=== PATIENT | female | born 1995 | race Caucasian/White ===

== ENCOUNTER → 2018-02-28 | Outpatient (CLI) | payer BC ==
[2018-02-28 10:25] LABS: HCT 35.2 % (34.0-46.0); HGB 12.1 gm/dL (11.4-16.0); MCH 29.4 pg (25.0-35.0); MCHC 34.3 g/dL (31.0-37.0); MCV 85.6 fL (80.0-100.0); Mean Platelet Volume 7.4; Platelet Count 216 k/uL (150-450); RBC 4.11 m/uL (3.80-5.40); RDW 12.5 % (11.5-15.5); WBC 6.7 k/uL (4.0-11.0)
[2018-03-02 11:42] LABS: HIV 1 AB Non-Reactive (Non-Reactive); HIV AB P24 Non-Reactive (Non-Reactive); HIV P24 AG Non-Reactive (Non-Reactive)
== END | disposition home or self-care (01) ==
LOC: LABWHC1 10:04
PROVIDERS: ATTEND Obstetrics & Gynecology
DX: Z34.81 Encounter for supervision of other normal pregnancy, first trimester (principal); Z3A.12 12 weeks gestation of pregnancy
CPT/HCPCS: 36415; 85027; 86762; 86780; 86850; 86900; 86901; 87340; 87390

== ENCOUNTER 2018-09-02 06:00 | Inpatient (IN) | payer OTHER, BC ==
[2018-09-02] MEDS ORDERED: LIDOCAINE 0.5% (PF) 5 MG/ML (50 ML SDV) SQ PRN (06:14)
[2018-09-02] MEDS ORDERED: TERBUTALINE 1 MG/ML VIAL SQ PRN (06:14)
[2018-09-02] MEDS ORDERED: OXYTOCIN 10 UNIT/ML 1 ML VIAL IM PRN (06:14)
[2018-09-02] MEDS ORDERED: CARBOPROST TROMETHAMINE 250 MCG/ML 1 ML AMP IM PRN (06:14)
[2018-09-02] MEDS ORDERED: METHYLERGONOVINE 0.2 MG/ML 1 ML AMP IM PRN (06:14)
[2018-09-02] MEDS ORDERED: OXYTOCIN 30 UNITS/500 ML NS 30 UNIT in SALINE 1 500ML.BAG IV SCH (06:15)
[2018-09-02 06:19] VITALS: BMI 26.7
[2018-09-02] MEDS: LACTATED RINGERS 1,000 ML IV SCH ×2 (06:32→12:29)
[2018-09-02 06:54] LABS: Basophils % (A) 0 %; Eosinophils % (A) 0 %; HCT 37.5 % (34.0-46.0); HGB 12.2 gm/dL (11.4-16.0); Hypochromasia Slight; Lymphocytes # (A) 1.7 k/uL (1.0-4.8); Lymphocytes % (A) 16 %; MCH 27.8 pg (25.0-35.0); MCHC 32.6 g/dL (31.0-37.0); MCV 85.2 fL (80.0-100.0); Mean Platelet Volume 7.3; Monocytes # (A) 0.5 k/uL (0-1.0); Monocytes % (A) 5 %; Neutrophils # (A) 8.1 k/uL (1.3-7.7); Neutrophils % (A) 77 %; Platelet Count 260 k/uL (150-450); RBC 4.41 m/uL (3.80-5.40); RDW 14.1 % (11.5-15.5); WBC 10.5 k/uL (4.0-11.0)
--- NOTE | 2018-09-02 07:19 | P.HPOB ---
History of Present Illness H&P Date: 09/02/18 This is a 22-year-old white female 1 para 0 EDC 09/06/2018 at 39-3/7 weeks' gestation. Patient presents today for elective induction. Fetus is been active throughout the . She denies vaginal bleeding or fluid leakage. She is having mild irregular contractions this morning. Obstetric history is significant for blood type A positive, rubella status immune. VDRL testing, urine culture, hepatitis B surface antigen, gonorrhea and chlamydia cultures, group B strep cultures all negative. One-hour Glucola 103. Past medical history is significant for childhood asthma. Past surgical history negative. Current medications vitamins daily. ALLERGIES none known. Social history patient is single, she works for [employer] locally, she has never been a smoker and denies alcohol or drug use. Family history significant for diabetes. On exam this is a pleasant young female, 5 foot 4 inches, 156 pounds, blood pressure on admission 138/77, patient is afebrile. The general physical exam is within normal limits. The cervix is 3 cm dilated, 70% effaced, -2 station, vertex presentation, artificial amniorrhexis reveals clear fluid. heart rate is in the 140s with reactive NST. Impression: 39-3/7 weeks intrauterine , here for elective induction, all signs reassuring. Plan: Oxytocin per hospital protocol. Close maternal and surveillance. Anticipate normal spontaneous vaginal delivery. Analgesic options have been reviewed with the patient. Review of Systems Constitutional: Reports as per HPI Past Medical History Past Medical History: No Reported History History of Any Multi-Drug Resistant Organisms: None Reported Past Surgical History: No Surgical Hx Reported Past Anesthesia/Blood Transfusion Reactions: No Reported Reaction Past Psychological History: No Psychological Hx Reported Smoking Status: Never smoker Past Alcohol Use History: None Reported Past Drug Use History: None Reported - Past Family History Brother(s) Family Medical History: Diabetes Mellitus Medications and Allergies Home Medications Medication Instructions Recorded Confirmed Type Pnv,Calcium 72/Iron/Folic Acid 1 each PO DAILY 09/02/18 09/02/18 History [ Plus Tablet] Allergies Allergy/AdvReac Type Severity Reaction Status Date / Time No Known Allergies Allergy Verified 09/02/18 06:13 Exam Vital Signs Temp Pulse Resp BP Pulse Ox 09/02/18 06:15 98.0 F 100 16 138/77 100 Intake and Output 09/01/18 09/02/18 09/02/18 22:59 06:59 14:59 Other: Weight 70.76 kg Results Result Diagrams: 09/02/18 06:30 Abnormal Lab Results - Last 24 Hours (Table) 09/02/18 Range/Units 06:30 Neutrophils # 8.1 H (1.3-7.7) k/uL Assessment and Plan Assessment: 39-3/7 weeks intrauterine , here for elective induction of labor. Plan: Oxytocin per hospital protocol. Continue close maternal and surveillance. Anticipate normal spontaneous vaginal delivery. Time with Patient: Less than 30
[2018-09-02] MEDS ORDERED: ROPIVACAINE 100 MG, fentaNYL (PF) 200 MCG in SODIUM CHLORIDE 0.9% 76 ML EPIDURAL ONE (13:42)
[2018-09-02] MEDS ORDERED: LANOLIN CREAM 5 GM TUBE TOPICAL PRN (15:26)
[2018-09-02] MEDS ORDERED: HYDROCORTISONE 2.5% RECTAL CREAM 30 GM TUBE RECTAL PRN (15:26)
[2018-09-02] MEDS ORDERED: WITCH HAZEL 1 EACH MED..PAD TOPICAL PRN (15:26)
[2018-09-02] MEDS ORDERED: ACETAMINOPHEN TAB 325 MG TAB PO PRN (15:26)
[2018-09-02] MEDS ORDERED: SIMETHICONE 80 MG CHEWABLE PO PRN (15:26)
[2018-09-02] MEDS ORDERED: BENZOCAINE/MENTHOL SPRAY 1 GM/SPRAY AEROSOL TOPICAL PRN (15:26)
[2018-09-02] MEDS ORDERED: diphenhydrAMINE 50 MG CAP PO PRN (15:26)
[2018-09-02] MEDS ORDERED: ZOLPIDEM 5 MG TAB PO PRN (15:26)
[2018-09-02] MEDS ORDERED: diphenhydrAMINE 25 MG CAP PO PRN (15:26)
[2018-09-02] MEDS ORDERED: diphenhydrAMINE 50 MG/ML 1 ML VIAL IVP PRN ×2 (15:26)
--- NOTE | 2018-09-02 15:26 | P.PROBDLV ---
Vaginal Delivery Note - . Vaginal Delivery Note: This is a 22-year-old white female 1 para 0 EDC 09/06/2018 at 39-3/7 weeks' gestation. Patient presented for induction with favorable multiparous cervix. has been unremarkable, group B strep cultures negative, blood type A+, rubella status immune. Please see admitting H&P for details. Artificial amniorrhexis revealed very thin meconium-stained fluid. heart rate was reactive through the first and second stages of labor. Oxytocin was started and titrated per hospital protocol. Patient became uncomfortable and requested epidural, this was placed without difficulty per the anesthesia staff. Patient was judged to be completely dilated at 1451 hrs. Perineal body was prepped and draped in usual sterile fashion. Excellent maternal expulsive efforts were note. Ultimately the 's head delivered occiput anterior and he restituted accordingly. There was a nuchal cord 1, along with a body cord. The right or anterior shoulder was delivered easily from underneath the pubic symphysis at which time the oropharynx, nasopharynx and external nares were bulb suctioned on the perineal body. Patient was officially delivered of a liveborn male at 1507 hrs. Umbilical cord was doubly clamped and ligated , he was handed to waiting nurses for evaluation where scores of 9 and 9 at one and 5 minutes respectively were given. The placenta delivered spontaneously, it was inspected and noted to be intact with trivascular cord at 1510 hrs. At this time the perineal body was redraped. Inspection of the cervix, vagina, perineum, periurethral, and perirectal areas revealed a small first-degree left perineal laceration. This was easily repaired in the usual fashion using 3-0 Vicryl suture. Fundus is firm and in the midline, symmetric and 18 week size upon completion of delivery. Total estimated blood loss 250 mL's. Infant weighed 6 lbs. 14 oz. or 3130 g. He is allowed to begin the bonding experience with his family. The parents are requesting circumcision further infant son.
[2018-09-02] MEDS ORDERED: OXYTOCIN 20 UNITS/1000 ML NS 1,000 ML IV SCH (15:30)
[2018-09-02] MEDS: SENNOSIDES-DOCUSATE SODIUM 1 EACH TAB PO SCH (20:19)
[2018-09-02] MEDS: IBUPROFEN 600 MG TAB PO PRN (20:19)
[2018-09-03] MEDS: IBUPROFEN 600 MG TAB PO PRN ×2 (06:36→12:17)
[2018-09-03 07:16] LABS: Basophils % (A) 0 %; Eosinophils % (A) 0 %; HCT 33.2 % (34.0-46.0); HGB 10.4 gm/dL (11.4-16.0); Lymphocytes # (A) 1.3 k/uL (1.0-4.8); Lymphocytes % (A) 14 %; MCH 27.1 pg (25.0-35.0); MCHC 31.5 g/dL (31.0-37.0); MCV 85.9 fL (80.0-100.0); Mean Platelet Volume 8.4; Monocytes # (A) 0.5 k/uL (0-1.0); Monocytes % (A) 5 %; Neutrophils # (A) 7.2 k/uL (1.3-7.7); Neutrophils % (A) 79 %; Platelet Count 187 k/uL (150-450); RBC 3.86 m/uL (3.80-5.40); RDW 14.4 % (11.5-15.5); WBC 9.1 k/uL (4.0-11.0)
--- NOTE | 2018-09-03 07:53 | P.DS ---
Providers Date of admission: 09/02/18 06:10 Expected date of discharge: 09/03/18 Attending physician: Susi Coleman Primary care physician: Stated None Hospital Course: This is a 22-year-old white female 1 para 0 EDC 09/06/2018 39-3/7 weeks ' gestation. Patient presented for elective induction with favorable cervix. unremarkable, group B strep cultures negative, blood type A positive, rubella status immune. Please see dictated history and physical for details. Artificial amniorrhexis revealed very thin meconium fluid. heart tones were reassuring throughout the first and second stages of labor. Oxytocin was started and titrated per hospital protocol. Epidural was placed per her request. She was judged to be completely dilated at 1451 hrs., perineal body was prepped and draped in usual sterile fashion. Patient quickly delivered vaginally a liveborn male infant with scores of 9 and 9 at one and 5 minutes respectively. There was a very small first-degree perineal laceration repaired with a single [id number] suture of 3-0 Vicryl. Fundus is firm and in the midline, symmetric and 18 week size upon completion of delivery. There was a nuchal cord 1 that was reduced. weighed 6 lbs. 14 oz. or 3130 g. Please see dictated delivery note for details. This morning the patient is doing well. She is voiding, ambulating and passing flatus without difficulty. Vital signs are stable and she is afebrile. Fundus is firm and in the midline, symmetric and 18 week size. Extremities are negative for edema. Circumcision has been performed on her infant son. Breast-feeding is going well, breasts are not engorged. She is judged to be in very good condition for discharge home. Patient is being discharged home this morning in very good condition. She will follow-up in the office with me in 6 weeks. I have reminded her no intercourse , tampons or douching. I have given her prescription for a double electric breast pump. She will continue taking her vitamin daily. She will take [id number] medications as needed for pain, ibuprofen, 200 mg, 3 every 6 hours as needed. We have discussed briefly options for contraception and we will discuss this further in the office. Patient Condition at Discharge: Good Plan - Discharge Summary Discharge Rx Participant: No New Discharge Prescriptions: No Action Pnv,Calcium 72/Iron/Folic Acid [ Plus Tablet] 1 each PO DAILY Discharge Medication List Pnv,Calcium 72/Iron/Folic Acid [ Plus Tablet] 1 each PO DAILY 09/02/18 [ History] Follow up Appointment(s)/Referral(s): Susi Coleman MD [STAFF PHYSICIAN] - 6 Weeks Discharge Disposition: HOME SELF-CARE
[2018-09-03] MEDS: SENNOSIDES-DOCUSATE SODIUM 1 EACH TAB PO SCH (08:12)
[2018-09-03 09:29] VITALS: BP 137/76; PULSE 93; RESP 16; TEMP 97.5
== END 2018-09-03 16:15 | disposition home or self-care (01) | DRG 807 ==
LOC: 4FBP 06:10
PROVIDERS: ADMIT Obstetrics & Gynecology; ATTEND Obstetrics & Gynecology
PROC: 10E0XZZ Delivery of Products of Conception, External Approach (ICD-10-PCS; principal; 2018-09-02)
PROC: 0HQ9XZZ Repair Perineum Skin, External Approach (ICD-10-PCS; 2018-09-02)
PROC: 10907ZC Drainage of Amniotic Fluid, Therapeutic from Products of Conception, Via Natural or Artificial Opening (ICD-10-PCS; 2018-09-02)
PROC: 3E033VJ Introduction of Other Hormone into Peripheral Vein, Percutaneous Approach (ICD-10-PCS; 2018-09-02)
PROC: 00HU33Z Insertion of Infusion Device into Spinal Canal, Percutaneous Approach (ICD-10-PCS; 2018-09-02)
PROC: 3E0R3BZ Introduction of Anesthetic Agent into Spinal Canal, Percutaneous Approach (ICD-10-PCS; 2018-09-02)
DX: O69.81X0 Labor and delivery complicated by cord around neck, without compression, not applicable or unspecified (principal); Z37.0 Single live birth; O77.0 Labor and delivery complicated by meconium in amniotic fluid; O70.0 First degree perineal laceration during delivery; Z3A.39 39 weeks gestation of pregnancy; Z83.3 Family history of diabetes mellitus
CPT/HCPCS: 85025; 86850; 86900; 86901

== ENCOUNTER 2020-06-25 08:20 | Inpatient (IN) | payer BC ==
[2020-06-25] MEDS ORDERED: OXYTOCIN 10 UNIT/ML 1 ML VIAL IM PRN (09:17)
[2020-06-25] MEDS ORDERED: METHYLERGONOVINE 0.2 MG/ML 1 ML AMP IM PRN (09:17)
[2020-06-25] MEDS ORDERED: LIDOCAINE 0.5% (PF) 5 MG/ML (50 ML SDV) SQ PRN (09:17)
[2020-06-25] MEDS ORDERED: CARBOPROST TROMETHAMINE 250 MCG/ML 1 ML AMP IM PRN (09:17)
[2020-06-25] MEDS ORDERED: TERBUTALINE 1 MG/ML VIAL SQ PRN (09:17)
[2020-06-25] MEDS ORDERED: OXYTOCIN 30 UNITS/500 ML NS 30 UNIT in SALINE 1 500ML.BAG IV SCH (09:30)
[2020-06-25 09:32] LABS: Basophils % (A) 0 %; Eosinophils % (A) 0 %; HGB 13.3 gm/dL (11.4-16.0); Lymphocytes # (A) 1.9 k/uL (1.0-4.8); Lymphocytes % (A) 20 %; MCH 27.8 pg (25.0-35.0); MCHC 32.4 g/dL (31.0-37.0); MCV 85.8 fL (80.0-100.0); Mean Platelet Volume 8.1; Monocytes # (A) 0.4 k/uL (0-1.0); Monocytes % (A) 4 %; Neutrophils # (A) 7.2 k/uL (1.3-7.7); Neutrophils % (A) 75 %; Platelet Count 204 k/uL (150-450); RBC 4.78 m/uL (3.80-5.40); RDW 14.6 % (11.5-15.5); WBC 9.6 k/uL (3.8-10.6)
[2020-06-25] MEDS ORDERED: ROPIVACAINE 100 MG, fentaNYL (PF) 200 MCG in SODIUM CHLORIDE 0.9% 76 ML EPIDURAL ONE (10:04)
[2020-06-25] MEDS: LACTATED RINGERS 1,000 ML IV SCH ×2 (10:09→19:03)
--- NOTE | 2020-06-25 10:57 | P.HPOB ---
History of Present Illness H&P Date: 06/25/20 Chief Complaint: IUP @ 39 1/7 weeks, labor This is a 24-year-old at 39 and one sevenths weeks that presents to labor and delivery with complaints of regular painful contractions that started around 6 AM. Patient denies loss of fluid or vaginal bleeding. Patient notes good movement. Patient has been receiving routine care with Dr Coleman, she doesn't have a history of childhood asthma but denies any inhaler use. On bloodwork patient is a blood type of A+, rubella status immune, RPR nonreactive, B surface antigen negative, HIV negative she did fail her 1 hour gestational diabetes screen with a result of 144 and subsequently passed her 3 h our. She did receive T Dap on 03/30. Group beta strep culture was negative on 1118. Review of Systems Constitutional: Denies chills, Denies fatigue, Denies fever Ears, nose, mouth and throat: Denies headache Cardiovascular: Reports leg edema Respiratory: Denies dyspnea Gastrointestinal: Denies constipation, Denies diarrhea, Denies nausea, Denies vomiting Genitourinary: Reports Past Medical History Past Medical History: No Reported History History of Any Multi-Drug Resistant Organisms: None Reported Past Surgical History: No Surgical Hx Reported Past Anesthesia/Blood Transfusion Reactions: No Reported Reaction Past Psychological History: No Psychological Hx Reported Smoking Status: Never smoker Past Alcohol Use History: None Reported Past Drug Use History: None Reported - Past Family History Brother(s) Family Medical History: Diabetes Mellitus Medications and Allergies Home Medications Medication Instructions Recorded Confirmed Type Pnv,Calcium 72/Iron/Folic Acid 1 each PO DAILY 09/02/18 09/02/18 History [ Plus Tablet] Allergies Allergy/AdvReac Type Severity Reaction Status Date / Time No Known Allergies Allergy Verified 06/25/20 08:33 Exam Osteopathic Statement: *. No significant issues noted on an osteopathic structural exam other than those noted in the History and Physical/Consult. 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 Patient desires epidural and anesthesia is notified. Anticipate spontaneous vaginal delivery
[2020-06-25] MEDS ORDERED: HYDROCORTISONE 2.5% RECTAL CREAM 30 GM TUBE RECTAL PRN (13:21)
[2020-06-25] MEDS ORDERED: SIMETHICONE 80 MG CHEWABLE PO PRN (13:21)
[2020-06-25] MEDS ORDERED: LANOLIN CREAM 5 GM TUBE TOPICAL PRN (13:21)
[2020-06-25] MEDS ORDERED: diphenhydrAMINE 50 MG CAP PO PRN (13:21)
[2020-06-25] MEDS ORDERED: ACETAMINOPHEN TAB 325 MG TAB PO PRN (13:21)
[2020-06-25] MEDS ORDERED: ZOLPIDEM 5 MG TAB PO PRN (13:21)
[2020-06-25] MEDS ORDERED: diphenhydrAMINE 25 MG CAP PO PRN (13:21)
[2020-06-25] MEDS ORDERED: BENZOCAINE/MENTHOL SPRAY 1 GM/SPRAY AEROSOL TOPICAL PRN (13:21)
[2020-06-25] MEDS ORDERED: diphenhydrAMINE 50 MG/ML 1 ML VIAL IVP PRN ×2 (13:21)
--- NOTE | 2020-06-25 13:21 | P.PROBDLV ---
Vaginal Delivery Note - . Vaginal Delivery Note: This pleasant 24-year-old presented to labor and delivery with complaints of contractions since 6 AM. Patient was admitted to labor and delivery and soon requested epidural placement. Epidural was placed without difficulty by the anesthesia department. Patient subsequently underwent amniotomy and clear fluid was obtained. Patient progressed to complete began pushing and had a normal spontaneous vaginal delivery of a viable male infant at 1307, loose umbilical cord was noted at delivery and delivered through, infant was placed on the maternal abdomen. A spontaneous cry was noted at . After two-minute delay the umbilical cord was doubly clamped and cut, the placenta was then delivered spontaneously intact with a three-vessel cord being noted. On section the patient's vaginal vault a first-degree vaginal laceration was noted and this was repaired in the usual fashion with 3-0 Rapide. Uterus is noted be firm and below the umbilicus. Estimated blood loss 200 mL. Patient and infant tolerated delivery well and are resting comfortably.
[2020-06-25] MEDS ORDERED: OXYTOCIN 20 UNITS/1000 ML NS 1,000 ML IV SCH (13:30)
[2020-06-25] MEDS: SENNOSIDES-DOCUSATE SODIUM 1 EACH TAB PO SCH (19:07)
[2020-06-25] MEDS: IBUPROFEN 600 MG TAB PO PRN (19:07)
[2020-06-25 21:20] VITALS: RESP 16
[2020-06-26] MEDS: IBUPROFEN 600 MG TAB PO PRN ×2 (01:04→08:10)
[2020-06-26] MEDS: SENNOSIDES-DOCUSATE SODIUM 1 EACH TAB PO SCH (08:10)
[2020-06-26 08:17] VITALS: BP 143/72; PULSE 88; TEMP 97.9
--- NOTE | 2020-06-26 11:10 | P.DS ---
Providers Date of admission: 06/25/20 08:36 Expected date of discharge: 06/26/20 Attending physician: Susi Coleman Primary care physician: Stated None Hospital Course: This is a 24-year-old white female 2 para 1001 EDC 07/01/2020 at 39 and one sevenths weeks' gestation who presented in active labor from home. Fetus is been active throughout the . She was scheduled for induction this morning. She denied vaginal bleeding or fluid leakage. Group B strep cultures negative, blood type A+, rubella status immune. Please see dictated history and physical for details. Patient went on to swiftly deliver with the aid of an epidural a liveborn male infant with scores of 9 and 9 at one and 5 minutes respectively. There was a nuchal cord 1 reduced, infant weight 8 lbs. 1 oz. or 3655 g. Please see dictated delivery note for details. This morning the patient is doing well. She is voiding, inability, passing flatus without difficulty. Vital signs are stable and she is afebrile. Breast- feeding is going well. Perineal body is clean and dry, intact. Minimal lochia rubra. No large blood clots. Patient is judged be in excellent condition for discharge home. Her circumcision has been performed. She will follow-up with me in the office in 6 weeks. I have reminded her no intercourse, tampons or douching. She will use [id number] Advil or Aleve, or Motrin as needed for pain. She will call with any fevers shakes or chills, foul smelling or copious lochia, with the passage of large blood clots, or indeed with any pounds difficulties or concerns. Assessment: Doing well day #1 Patient Condition at Discharge: Good Plan - Discharge Summary Discharge Rx Participant: No New Discharge Prescriptions: No Action Pnv,Calcium 72/Iron/Folic Acid [ Plus Tablet] 1 each PO DAILY Discharge Medication List Pnv,Calcium 72/Iron/Folic Acid [ Plus Tablet] 1 each PO DAILY 09/02/18 [History] Follow up Appointment(s)/Referral(s): Susi Coleman MD [STAFF PHYSICIAN] - 6 Weeks Discharge Disposition: HOME SELF-CARE
== END 2020-06-26 14:30 | disposition home or self-care (01) | DRG 807 ==
LOC: FBPOP 08:20 → 4FBP 08:36
PROVIDERS: ADMIT Obstetrics & Gynecology Obstetrics; ATTEND Obstetrics & Gynecology
PROC: 0HQ9XZZ Repair Perineum Skin, External Approach (ICD-10-PCS; principal; 2020-06-25)
PROC: 00HU33Z Insertion of Infusion Device into Spinal Canal, Percutaneous Approach (ICD-10-PCS; principal; 2020-06-25)
PROC: 3E0R3BZ Introduction of Anesthetic Agent into Spinal Canal, Percutaneous Approach (ICD-10-PCS; principal; 2020-06-25)
PROC: 10E0XZZ Delivery of Products of Conception, External Approach (ICD-10-PCS; principal; 2020-06-25)
DX: O69.81X0 Labor and delivery complicated by cord around neck, without compression, not applicable or unspecified (principal); Z37.0 Single live birth; O70.0 First degree perineal laceration during delivery; Z3A.39 39 weeks gestation of pregnancy; Z83.3 Family history of diabetes mellitus
CPT/HCPCS: 59025; 85025; 86850; 86900; 86901; 99213

== ENCOUNTER → 2024-02-02 | Outpatient (CLI) | payer BC ==
--- NOTE | 2024-02-02 12:19 | XR ---
EXAMINATION TYPE: XR chest 2V DATE OF EXAM: 02/02/2024 COMPARISON: NONE HISTORY: Chest pain TECHNIQUE: Frontal and lateral views of the chest are obtained. FINDINGS: There is no focal air space opacity. No evidence for pneumothorax. No pleural effusion. The cardiac silhouette size is within normal limits. The osseous structures are grossly intact. IMPRESSION: 1. No acute cardiopulmonary process.
== END | disposition home or self-care (01) ==
LOC: RADXRMAIN 11:59
PROVIDERS: ATTEND Nurse Practitioner Family
DX: J18.9 Pneumonia, unspecified organism (principal); R07.9 Chest pain, unspecified
CPT/HCPCS: 71046